=== PATIENT | male | born 1975 | race Caucasian/White ===

== ENCOUNTER 2018-01-17 11:28 | Emergency (ER) | payer OTHER ==
[~2018-01-17] VITALS: Ht 170.2 cm; Wt 99.8 kg
[2018-01-17] MEDS ORDERED: NITROGLYCERIN 0.4 MG/TAB BOTTLE SL ONE ×2 (12:00→12:16)
[2018-01-17] MEDS ORDERED: ASPIRIN 81 MG TAB.CHEW PO ONE (12:00)
[2018-01-17] MEDS ORDERED: ASPIRIN 81 MG TAB.CHEW ONE (12:16)
[2018-01-17 12:27] LABS: ETHANOL < 3 MG/DL (0-0)
[2018-01-17 12:30] LABS: CREATININE 0.7 mg/dL (0.6-1.3); POTASSIUM 3.7 mmol/L (3.5-5.1)
[2018-01-17 12:36] LABS: BASOPHILS # (AUTO) 0.1 K/uL (0.0-8.0); BASOPHILS % (AUTO) 0.8 % (0.0-2.0); BILIRUBIN,DIRECT 0.1 mg/dL (0.0-0.2); BILIRUBIN,TOTAL 0.6 mg/dL (0.2-1.0); EOSINOPHILS # (AUTO) 0.2 K/uL (0.0-0.7); HEMATOCRIT 43.4 % (36.7-47.1); HEMOGLOBIN 14.9 g/dL (12.5-16.3); LYMPHOCYTES # (AUTO) 3.7 K/uL (20.0-40.0); LYMPHOCYTES % (AUTO) 30.5 % (20.5-51.5); MEAN CORPUSCULAR HEMOGLOBIN 28.9 uug (23.8-33.4); MEAN CORPUSCULAR HGB CONC 34 g/dL (32.5-36.3); MONOCYTES % (AUTO) 8.4 % (0.0-11.0); NEUTROPHILS # (AUTO) 7.1 K/uL (1.8-8.9); NEUTROPHILS % (AUTO) 58.3 % (38.5-71.5); PLATELET COUNT (AUTO) 301 K/uL (152-348); RED BLOOD CELL COUNT(AUTO) 5.17 MIL/uL (4.06-5.63); TOTAL PROTEIN, SERUM 7.8 g/dL (6.4-8.2); WHITE BLOOD COUNT (AUTO) 12.2 K/uL (3.6-10.2)
[2018-01-17] MEDS ORDERED: CLONIDINE HCL 0.1 MG TABLET PO ONE (12:45)
[2018-01-17 12:53] VITALS: BP 157/91
[2018-01-17] MEDS ORDERED: CLONIDINE HCL 0.1 MG TABLET ONE (12:54)
--- NOTE | 2018-01-17 13:18 | NUR ---
PATIENT WAS SEEN BY MD FOR C/O CHEST PAIN AND FACE PAIN. HE STATES HE HAS NOT SEEN A DOCTOR FOR COUPE OF YEARS. BP WAS HIGH BUT IT CAME DOWN SIGNIFICANTLY. DIAGNOSTIC TESTS COMPLETED. PATIENT WAS ADVISED TO STAY FOR 24 HOURS IN THE HOSPITAL BUT PATIENT ADIMANTLY REFUSED.. HE TOLD ME THIS IN [place] AND [place]. HE SIGNED THE AMA FORMS. WE DID INSTRUCT HIM TO FOLLOW UP [facility] WITH A [employer]ET [employer] MECHANIC AND IF HE HAS CP AGAIN TO CALL EMS AND SEEK MEDICAL CARE RIGHT AWAY. PATIENT STATES HE UNDERSTANDS ALL THESE INSTRUCTIONS AND RISKS OF LEAVING AMA INLCLUDING . PATIENTS FAMILY/FRIEND IS HERE AND HE ALSO STATES HE UNDERSTANDS THESE RISKS AND INSTRUCTIONS.
== END 2018-01-17 13:24 | disposition left against medical advice (07) ==
LOC: ER 11:30
DX: R07.89 Other chest pain (principal); I10 Essential (primary) hypertension; F17.200 Nicotine dependence, unspecified, uncomplicated
CPT/HCPCS: 36415; 71045; 80048; 80076; 83690; 84484; 85025; 85730; 93005; 99285; A4663; G0480; 70030-TC